=== PATIENT | female | born 1970 | race Caucasian/White ===

== ENCOUNTER → 2016-12-13 | Outpatient (CLI) | payer OTHER ==
--- NOTE | 2016-12-13 13:13 | WWHP ---
DATE OF SERVICE: 12/13/2016 CHIEF COMPLAINT: The patient is here for her routine gynecologic exam. HPI: This is a 46-year-old G4, P4 with an LMP of 12/03/16. The patient is status post tubal ligation. She did have a previous abnormal Pap smear showing ASCUS with negative high-risk HPV testing on 03/17/15. See is complaining of feeling like something is dropping in the vaginal area. She tends to notice this more when she has been on her feet for a long time. This has been going on for about 6 to 8 months. Her periods are about monthly but are a little less predictable since they use to always start on the same day of each month. 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 She does have 1 to 2 days of heavier flow at the beginning of the period. She denies seeing anything hanging outside of the vagina. PAST MEDICAL HISTORY: Hiatal hernia, mild gastroesophageal reflux disease, chronic neck and back pain. MEDICATIONS: 1. Flexeril p.r.n. 2. [place] 7.5/325 q. day p.r.n. ALLERGIES: None known drug allergies. PAST SURGICAL HISTORY: section in 1996, laparoscopic cholecystectomy in 1996. 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 She has no other history of STDs. SOCIAL HISTORY: She smokes about 1/2 pack of cigarettes per day and denies alcohol and drug use. She has been with her current boyfriend since 05/07 but does not live with him. 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 FAMILY HISTORY: Both parents have type 2 diabetes. REVIEW OF SYSTEMS: She has gained about 4 pounds over the last year. She denies respiratory, cardiac, or GI problems. PHYSICAL EXAM: Blood pressure 122/72. Height 5 feet 6 inches. Weight 166 pounds. Temperature 98.2, pulse 56. This is a well-developed, well-nourished white female who is alert and oriented x3 in no acute distress. HEENT is within normal limits. NECK: Supple without mass or thyromegaly. CHEST AND LUNGS: Clear to auscultation. HEART: Regular rate and rhythm. Breasts are without mass or discharge. Axillary exam is negative for adenopathy. BACK: Negative for CVA tenderness. ABDOMEN: Soft, nontender, without palpable masses. PELVIC EXAM: Normal external genitalia. Cervix and vagina appear normal. There is no significant prolapse at rest. The cervix appears multiparous. There is no cervical motion tenderness. The uterus is midposition and mildly enlarged approximately 8 weeks size. It is somewhat firm and nontender. There are no palpable adnexal masses or tenderness. Rectovaginal exam is negative for mass or tenderness and is negative for occult blood. EXTREMITIES: Nontender. IMPRESSION: 1. A 46-year-old female with mildly enlarged uterus on exam, but otherwise unremarkable gynecologic exam. 2. Sensation of dropping in the vaginal area when she has been on her feet. Differential diagnosis will include pelvic prolapse, which may be greater when she has been on her feet for a long time and this was not demonstrated today. Differential diagnosis will also include uterine enlargement such as uterine fibroids. 3. Previous ASCUS Pap smear with negative high-risk HPV testing 1-1/2 years ago. PLAN: 1. Pap smear was performed. 2. Self breast examination was discussed. 3. Mammogram is due and an order slip was given to patient for this. 4. Pelvic ultrasound will be scheduled. 5. We have discussed negative Valsalva exercises, which she can try at the times when she notices the dropping sensation. 6. The patient will keep a menstrual calendar and will call if she is having menstrual problems. 7. She will return in one year and p.r.n. MTDD
== END | disposition home or self-care (01) ==
LOC: WWCWWP 11:13
PROVIDERS: ATTEND Obstetrics & Gynecology
DX: Z53.9 Procedure and treatment not carried out, unspecified reason (principal)

== ENCOUNTER → 2018-05-08 | Outpatient (CLI) | payer OTHER ==
[2018-05-08 08:12] VITALS: BP 125/60; PULSE 56; TEMP 97; BMI 26.9
--- NOTE | 2018-05-08 09:00 | P.HPOB ---
History of Present Illness H&P Date: 05/08/18 Chief Complaint: The patient is here for her routine gynecologic exam and mammogram. This is a 47-year-old with an LMP of 05/01/2018. The patient status post tubal ligation. She states her menstrual periods have been about once a month, but seemed to be not as heavy. She also has been experiencing occasional hot flashes at night, typically between 3 and 4 AM and 7-8AM. She is otherwise without gynecologic complaints. Review of Systems The patient's weight has been stable. She denies respiratory or cardiac problems. G.I.: she's had some issues with hemorrhoids. She notices irritation in this area with hard bowel movements. She has had these types of problems with bowel movements after coming off of [place]. Past Medical History Past Medical History: No Reported History, GERD/Reflux Additional Past Medical History / Comment(s): Hiatal hernia, chronic neck and back pain. 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 She has no other history of STDs. History of Any Multi-Drug Resistant Organisms: None Reported Past Surgical History: Section, Cholecystectomy Past Psychological History: No Psychological Hx Reported Smoking Status: Current every day smoker (Half a pack of cigarettes per day) Past Alcohol Use History: None Reported Past Drug Use History: None Reported Additional History: She has been with her boyfriend since 2016, but does not live with him. She is currently not working outside the home. - Past Family History Father Family Medical History: Diabetes Mellitus Mother Family Medical History: Diabetes Mellitus Medications and Allergies Home Medications Medication Instructions Recorded Confirmed Type Cyclobenzaprine [Flexeril] mg PO PRN 05/08/18 History Omeprazole [PriLOSEC] mg PO DAILY 05/08/18 History Allergies Allergy/AdvReac Type Severity Reaction Status Date / Time latex Allergy Rash/Hives Verified 12/20/14 06:21 Exam Vital Signs Temp Pulse BP 05/08/18 08:09 97.0 F L 56 L 125/60 Intake and Output 05/07/18 05/08/18 05/08/18 22:59 06:59 14:59 Other: Weight 75.75 kg Height 5'6", weights 167 pounds, BMI 27.0. This is a well-developed well-nourished white female who is alert and oriented times 3 in no acute distress. HEENT: Within normal limits. NECK: Supple without mass or thyromegaly. CHEST AND LUNGS: Clear to auscultation. HEART: Regular rate and rhythm. BREASTS: Are without mass or discharge. AXILLARY EXAM: Negative for adenopathy. BACK: Negative for CVA tenderness. ABDOMEN: Soft, nontender, without palpable masses. PELVIC EXAM: Normal external genitalia. Cervix and vagina appear normal. There is no unusual discharge. There is no evidence of prolapse. The uterus is midposition, nongravid size and nontender. There are no palpable adnexal masses or tenderness. RECTAL EXAM: there is a 1 cm noninflamed external hemorrhoid at the anus which is nontender. Rectal exam is negative for mass or tenderness and is negative for occult blood. EXTREMITIES: Nontender. IMPRESSION: 1. 47-year-old female with occasional vasomotor symptoms at night, probable early perimenopause. 2. Normal gynecologic exam. 3. The patient is status post tubal ligation. 4. Mildly symptomatic hemorrhoid. PLAN: 1. Pap smear was deferred since she had normal one last year. 2. Self breast awareness was discussed with the patient. 3. Screening mammogram will be done today. 4. Osteoporosis prevention was discussed. 5. The patient is requesting suppositories for her symptomatic hemorrhoid. Anusol HC suppositories one per rectum BID PRN, number 12, 2 refills. The prescription will be sent to [facility] pharmacy on . I have also stressed the importance of increasing fiber and trying to keep bowel movements regular and soft. She can also consider a stool softener. 6. She will return in one year.
--- NOTE | 2018-05-09 11:22 | MM ---
Reason for exam: screening (asymptomatic). Last mammogram was performed 3 years and 2 months ago. Physical Findings: A clinical breast exam by your physician is recommended on an annual basis and results should be correlated with mammographic findings. MG Screening Mammo w CAD Bilateral CC and MLO view(s) were taken. Prior study comparison: March 17, 2015, bilateral MG screening mammo w CAD. December 09, 2013, bilateral MG screening mammo w CAD. The breast tissue is heterogeneously dense. This may lower the sensitivity of mammography. There is a far posterior depth left upper outer quadrant mass, likely a lymph node, although ultrasound will confirm. No suspicious abnormality on the right. ASSESSMENT: Incomplete: need additional imaging evaluation, BI-RAD 0 RECOMMENDATION: Ultrasound of the left breast. (upper outer quadrant) [facility] will attempt to contact patient to return for ultrasound.
== END | disposition home or self-care (01) ==
LOC: WWCWWP 07:56
PROVIDERS: ATTEND Obstetrics & Gynecology
DX: Z12.31 Encounter for screening mammogram for malignant neoplasm of breast (principal)
CPT/HCPCS: 77067

== ENCOUNTER → 2018-05-10 | Outpatient (CLI) | payer OTHER ==
--- NOTE | 2018-05-13 08:09 | USB ---
Reason for exam: additional evaluation requested from abnormal screening. Physical Findings: Nurse Summary: palpable lump (nurse kp). US Breast Workup Limited LT Left limited breast ultrasound including focal area of concern, retroareolar and axilla demonstrates a 0.7 x 0.5 x 0.7cm node at 1 o'clock, corresponds to the mammographic finding. These results were verbally communicated with the patient and result sheet given to the patient on 05/10/18. ASSESSMENT: Benign, BI-RAD 2 RECOMMENDATION: Return to routine screening mammogram schedule for both breasts.
== END ==
LOC: RADUSWWP 13:53
PROVIDERS: ATTEND Obstetrics & Gynecology
DX: R92.8 Other abnormal and inconclusive findings on diagnostic imaging of breast (principal)

== ENCOUNTER → 2019-07-01 | Outpatient (CLI) | payer OTHER ==
[2019-07-01 15:00] VITALS: BP 117/77; PULSE 65; RESP 18; TEMP 98.5
--- NOTE | 2019-07-01 15:39 | P.HPOB ---
History of Present Illness H&P Date: 07/01/19 Chief Complaint: The patient is here for her routine gynecologic exam and ma mmogram. This is a 48-year-old with an LMP of July 2018. The patient states her menstrual periods were fairly regular up until July and she has been amenorrheic since then. He also has been having significant hot flashes since then as well. She is status post tubal ligation. She had some intermittent brief stabbing-type pains in the left lower abdomen yesterday but they seem to have resolved and she is not noticing any pain today. She is requesting chlamydia and gonorrhea testing. She states she believes she is in a monogamous relationship since 2016, but she states she is never 100% sure that she is her partner's only sexual partner. She is declining any blood STD testing at this time. Review of Systems The patient has lost 3 pounds over the last year. She denies respiratory, cardiac, or G.I. problems. Past Medical History Past Medical History: GERD/Reflux Additional Past Medical History / Comment(s): Hiatal hernia, chronic neck and back pain. 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 She has no other history of STDs. History of Any Multi-Drug Resistant Organisms: None Reported Past Surgical History: Section, Cholecystectomy Past Psychological History: Anxiety Smoking Status: Former smoker Past Alcohol Use History: Rare (2 per year) Additional Past Alcohol Use History / Comment(s): Quit smoking December 2018. Past Drug Use History: None Reported Additional History: She has been with her boyfriend since 2015 but does not live with him. - Past Family History Father Family Medical History: Diabetes Mellitus Mother Family Medical History: Diabetes Mellitus Medications and Allergies Home Medications Medication Instructions Recorded Confirmed Type Cyclobenzaprine [Flexeril] 10 mg PO DAILY PRN 05/08/18 07/01/19 History Omeprazole [PriLOSEC] 10 mg PO DAILY 05/08/18 07/01/19 History Escitalopram [Lexapro] 10 mg PO DAILY 07/01/19 07/01/19 History Allergies Allergy/AdvReac Type Severity Reaction Status Date / Time latex Allergy Rash/Hives Verified 07/01/19 14:55 Exam Vital Signs Temp Pulse Resp BP Pulse Ox 07/01/19 14:55 98.5 F 65 18 117/77 98 Intake and Output 07/01/19 07/01/19 07/01/19 06:59 14:59 22:59 Other: Weight 74.389 kg Height 5 feet 6 inches, weight 164 pounds, BMI 26.5. This is a well-developed well-nourished white female who is alert and oriented times 3 in no acute distress. HEENT: Within normal limits. NECK: Supple without mass or thyromegaly. CHEST AND LUNGS: Clear to auscultation. HEART: Regular rate and rhythm. BREASTS: Are without mass or discharge. AXILLARY EXAM: Negative for adenopathy. BACK: Negative for CVA tenderness. ABDOMEN: Soft, nontender, without palpable masses. PELVIC EXAM: Normal external genitalia. Cervix and vagina appear normal. There is no cervical motion tenderness. There is no unusual discharge. There is no evidence of prolapse. The uterus is midposition, nongravid size and nontender. There are no palpable adnexal masses or tenderness. RECTAL EXAM: negative for mass or tenderness and is negative for occult blood. There is an external hemorrhoid that does not appear inflamed and is nontender. EXTREMITIES: Nontender. IMPRESSION: 1. 48-year-old perimenopausal female with 11 months of amenorrhea and vasomotor symptoms, with normal gynecologic exam. 2. Brief intermittent left lower quadrant pains yesterday which have resolved. There are no significant physical findings at this time. 3. Previous tubal ligation. PLAN: 1. Pap smear was performed. 2. Self breast awareness was discussed with the patient. 3. Screening mammogram will be done today. 4. GC and Chlamydia testing was obtained from the cervix per the patient's request. I have recommended blood STD testing since she is interested in testing for STDs, however, she is declining any blood tests at this time. 5. The patient is requesting a suppository for when she has symptomatic hemorrhoids. Anusol HC suppositories 1 per rectum twice a day when necessary. The electronic prescription will be sent to [facility] pharmacy on . 6.Osteoporosis prevention was discussed. I have stressed the importance of adequate calcium, vitamin D and regular exercise. Recommended amounts of calcium and vitamin D were also discussed. 7. She was advised to return in one year for her annual well woman exam.
--- NOTE | 2019-07-03 13:53 | MM ---
Reason for exam: screening (asymptomatic). Last mammogram was performed 1 year and 2 months ago. Physical Findings: A clinical breast exam by your physician is recommended on an annual basis and results should be correlated with mammographic findings. MG Screening Mammo w CAD Bilateral CC and MLO view(s) were taken. Prior study comparison: May 08, 2018, bilateral MG screening mammo w CAD. March 17, 2015, bilateral MG screening mammo w CAD. The breast tissue is heterogeneously dense. This may lower the sensitivity of mammography. There is no discrete abnormality. No significant changes when compared with prior studies. ASSESSMENT: Negative, BI-RAD 1 RECOMMENDATION: Routine screening mammogram of both breasts in 1 year.
[2019-07-03 14:43] LABS: C. trachomatis,PCR Negative (Neg,Equiv); Chlamydia trachomatis Source Cervix; N. gonorrhoeae,PCR Negative (Neg,Equiv); Neisseria Source Cervix
== END | disposition home or self-care (01) ==
LOC: WWCWWP 14:40
PROVIDERS: ATTEND Obstetrics & Gynecology
DX: Z12.31 Encounter for screening mammogram for malignant neoplasm of breast (principal)
CPT/HCPCS: 77067; 87491; 87591

== ENCOUNTER → 2021-01-17 | Outpatient (CLI) | payer OTHER ==
--- NOTE | 2021-01-17 12:50 | XR ---
EXAMINATION TYPE: XR cervical spine comp DATE OF EXAM: 01/17/2021 COMPARISON: NONE HISTORY: Pain TECHNIQUE: Four views are submitted. FINDINGS: The odontoid is intact. There are no compression deformities. The prevertebral soft tissue structur es are within normal limits. Cervical is noted. There is severe degenerative disc disease C4-5 with retrolisthesis measuring 2.5 mm. Moderate degenerative disc disease C5-C6 and C6-C7. Facet arthropath y C6-C7 and C5-C6. IMPRESSION: 1. Multilevel severe degenerative disc disease with facet arthropathy. There is a 2.5 mm retrolisthes is of C4 relative to C5.
--- NOTE | 2021-01-17 12:51 | XR ---
EXAM TYPE: LUMBAR SPINE X RAY SERIES COMPARISON: NONE HISTORY: Pain TECHNIQUE: 4 views are submitted. FINDINGS: Alignment is anatomic. The pedicles are intact. The transverse processes are intact. There is surg ical clips in the right upper quadrant. Minimal anterolisthesis L4 and L5 with multilevel mild degene rative disc disease. Moderate facet arthropathy L4-5 and L5-S1. IMPRESSION: 1. A grade 1 anterolisthesis L4 and L5 with multilevel facet arthropathy and mild degenerative disc d isease.
== END | disposition home or self-care (01) ==
LOC: RADXRMAIN 12:25
PROVIDERS: ATTEND Neurological Surgery
DX: M43.16 Spondylolisthesis, lumbar region (principal); M47.816 Spondylosis without myelopathy or radiculopathy, lumbar region; M51.36 Other intervertebral disc degeneration, lumbar region; M50.30 Other cervical disc degeneration, unspecified cervical region; M47.812 Spondylosis without myelopathy or radiculopathy, cervical region; M43.12 Spondylolisthesis, cervical region
CPT/HCPCS: 72050; 72110

== ENCOUNTER → 2021-05-04 | Outpatient (CLI) | payer OTHER ==
--- NOTE | 2021-05-05 06:58 | MR ---
EXAMINATION TYPE: MR lumbar spine wo con DATE OF EXAM: 05/04/2021 COMPARISON: Lumbar spine x-ray January 17, 2021 HISTORY: Low back pain that goes into both legs, mainly left leg and foot for 5 months. Radiculopathy per order. TECHNIQUE: Multiplanar, multisequence imaging of the lumbar spine is performed without IV contrast. FINDINGS: Sagittal images of the lumbar spine show vertebral body heights and alignment to appear sat isfactory. Multilevel disc desiccation but the disc space heights are maintained. The conus medullar is is normal in position and signal ending mid L1 level. The bone marrow signal intensity is within normal limits. Axial images show T12-L1, L1-L2, L2-L3, and L3-L4 levels also appear within normal limits. Axial images at the L4-L5 level shows mild broad-based posterior disc protrusion minimally effacing t he anterior thecal sac. There is [id number] facet degenerative change and ligamentum flavum hyp ertrophy effacing bilateral posterior lateral thecal sac on axial image 8. Bilateral neural foramina are patent. Axial images at the L5-S1 level show mild facet arthropathy. There are several subcentimeter small rounded T2 hyperintense lesions throughout both kidneys felt to reflect benign simple thin-walled cysts. IMPRESSION: Mild degenerative changes lower lumbar spine as detailed above. No large disc herniation to account for patient's reported radiculopathy type symptoms.
== END | disposition home or self-care (01) ==
LOC: RADMRIMAIN 20:53
PROVIDERS: ATTEND Neurological Surgery
DX: M51.16 Intervertebral disc disorders with radiculopathy, lumbar region (principal); M47.27 Other spondylosis with radiculopathy, lumbosacral region
CPT/HCPCS: 72148

== ENCOUNTER → 2022-10-04 | Outpatient (CLI) | payer OTHER ==
[2022-10-04 10:43] VITALS: BP 147/76; PULSE 62; RESP 17; TEMP 97.7
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
== END ==
LOC: WWCWWP 10:17
PROVIDERS: ATTEND Obstetrics & Gynecology
DX: Z01.419 Encounter for gynecological examination (general) (routine) without abnormal findings (principal); R32 Unspecified urinary incontinence; K21.9 Gastro-esophageal reflux disease without esophagitis; Z91.040 Latex allergy status; Z87.891 Personal history of nicotine dependence

== ENCOUNTER 2023-06-11 22:37 | Emergency (ER) | payer OTHER ==
[2023-06-11 23:02] VITALS: TEMP 97.6
[2023-06-12] MEDS ORDERED: ACET/COD 300 MG/30 MG STARTER PACK 6 TAB BTL PO STA (00:12)
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
[2023-06-12 00:26] VITALS: BP 142/89; PULSE 76; RESP 20
--- NOTE | 2023-06-12 01:20 | XR ---
EXAM: XR Left Fingers, 2 or More Views CLINICAL HISTORY: ITS.REASON XR Reason: Left pinky finger injury TECHNIQUE: Frontal, lateral and oblique views of the fingers of the left hand. COMPARISON: No relevant prior studies available. FINDINGS: Bones/joints: Nondisplaced fracture of the fifth digit proximal phalanx. No dislocation. Soft tissues: Unremarkable. No radiopaque foreign body. IMPRESSION: Nondisplaced fracture of the fifth digit proximal phalanx.
== END 2023-06-12 00:25 | disposition home or self-care (01) ==
LOC: EC 22:37
DX: S62.617A Displaced fracture of proximal phalanx of left little finger, initial encounter for closed fracture (principal); K21.9 Gastro-esophageal reflux disease without esophagitis; F41.9 Anxiety disorder, unspecified; Z87.891 Personal history of nicotine dependence; Z79.899 Other long term (current) drug therapy; Z91.040 Latex allergy status; W50.1XXA Accidental kick by another person, initial encounter
CPT/HCPCS: 99283